=== PATIENT | female | born 1990 ===

== ENCOUNTER 2020-03-19 22:05 | Inpatient (IN) | payer BC ==
[~2020-03-19] VITALS: Wt 67.7 kg
--- NOTE | 2020-03-19 21:50 | NUR ---
Ambulatory to unit for labor assessment, accompanied by spouse. Pt reports "my water broke @ 8:20". Oriented to room, monitor, plan of care.
[2020-03-19 22:05] VITALS: BP 123/79; PULSE 84
[2020-03-19] MEDS ORDERED: PRENATAL TABLET PO (22:27)
[2020-03-19 22:30] VITALS: BP 117/71; PULSE 85
[2020-03-19 23:00] VITALS: BP 119/76; BP 120/68; PULSE 86; PULSE 96
[2020-03-19 23:30] VITALS: BP 109/70; PULSE 84
[2020-03-20] VITALS (39 sets, daily range): BP systolic 101–1238; BP diastolic 56–851; PULSE 78–137; TEMP 97.9–100.9
[2020-03-20 01:27] LABS: HEMATOCRIT 38.4 % (37.0-47.0); HEMOGLOBIN 12.2 g/dl (12.5-16.0); MEAN CELL VOLUME 77 fl (80.0-100.0); MEAN CORPUSCULAR HEMOGLOBIN 25 pg (27.0-31.0); MEAN CORPUSCULAR HGB CONC 32 g/dl (33.0-37.0); PLATELET COUNT 234 K/mm3 (130-400); RED BLOOD COUNT 4.97 M/mm3 (4.10-5.30); REDCELL DISTRIBUTION WIDTH-CV 15.1 % (11.5-14.5)
[2020-03-20 02:13] LABS: BAND 15 % (0-10); EOSINOPHIL 2 % (0-4); LYMPHOCYTE 15 % (20.0-51.0); NEUTROPHILS 56 % (42.0-75.2); PLATELET ESTIMATE NORMAL (NORMAL)
[2020-03-20 02:14] LABS: ANISOCYTOSIS 1+; HYPOCHROMIA 1+; MICROCYTOSIS 1+
--- NOTE | 2020-03-20 02:20 | NUR ---
Pt states "I don't think the pain medicine is working very good this time. I would like an epidural"
--- NOTE | 2020-03-20 03:00 | NUR ---
[facility] MAINTENANCE TECHNICIAN into room for epidural placement. PT to edge of bed.
--- NOTE | 2020-03-20 03:10 | NUR ---
pt sitting on edge of bed, EFM tracing maternal heart rate, nurse holds toco in place, EFM traces EFM.
--- NOTE | 2020-03-20 06:30 | NUR ---
Report from Akira Nagy RN, care of patient assumed at this time. Patient sleeping, at bedside and call light in reach.
--- NOTE | 2020-03-20 07:00 | NUR ---
SVE 10/+2. Patient does not feel pressure at this time. notified, see physician notification. Patient updated on plan of care and encouraged to notify RN with increased pain or pressure. Call light in reach.
--- NOTE | 2020-03-20 07:35 | NUR ---
Causey catheter removed prior to pushing. Pericare given. Patient comfortable with epidural. 0345- Patient begins pushing with contractions with RN at bedside. Physician in transit to hospital soon.
--- NOTE | 2020-03-20 08:18 | NUR ---
Patient pushing in LL position. 0820- at bedside to assess pushing efforts. Patient continues to push with contractions.
--- NOTE | 2020-03-20 08:45 | NUR ---
Dr. Garcia at bedside to assess pushing.
--- NOTE | 2020-03-20 08:45 | NUR ---
0845- called for bedside for impending delivery. Patient continues pushing with contractions. Nursery RN to bedside. 0914- of viable female infant attended by . to mother's abdomen, care of infant to Michel Killian RN. Apgars 8/9. Delayed cord clamping per patient request. 0918- Spont. delivery of placenta. Pitocin bolus infusing at 333 ml/hr/protocol. Second degree and periclitoral laceration repaired by Dr. Garcia. Patient tolerates well. Fundal massage by RN, firm and at umbilicus. Vaginal bleeding WNL at this time. Pericare given and ice pack applied. Patient updated on plan of care and safety reviewed.
[2020-03-20] MEDS ORDERED: MOTRIN 800800 MG/TAB PO (21:42)
[2020-03-21 00:15] VITALS: BP 114/61; PULSE 95; TEMP 98.3
[2020-03-21 05:00] VITALS: BP 98/49; PULSE 78; TEMP 98
[2020-03-21 06:34] LABS: MEAN CELL VOLUME 79 fl (80.0-100.0); MEAN CORPUSCULAR HGB CONC 31 g/dl (33.0-37.0); PLATELET COUNT 160 K/mm3 (130-400); RED BLOOD COUNT 3.77 M/mm3 (4.10-5.30)
[2020-03-21 06:52] LABS: HEMATOCRIT 29.8 % (37.0-47.0); MEAN CORPUSCULAR HEMOGLOBIN 25 pg (27.0-31.0)
[2020-03-21 06:55] LABS: HEMOGLOBIN 9.3 g/dl (12.5-16.0)
[2020-03-21 08:53] VITALS: BP 100/58; PULSE 76; TEMP 98.1
[2020-03-21] MEDS ORDERED: FERRO-TIME325 MG PO (09:24)
== END 2020-03-21 14:41 | disposition home or self-care (01) | DRG 768 ==
LOC: LDRO 22:05 → LDR 22:35 → OB 03-20 11:45
PROVIDERS: Obstetrics & Gynecology; ADMIT Obstetrics & Gynecology
PROC: 10E0XZZ Delivery of Products of Conception, External Approach (ICD-10-PCS; principal; 2020-03-19)
PROC: 0UQJXZZ Repair Clitoris, External Approach (ICD-10-PCS; 2020-03-19)
PROC: 0KQM0ZZ Repair Perineum Muscle, Open Approach (ICD-10-PCS; 2020-03-19)
DX: O48.0 Post-term pregnancy (principal); Z37.0 Single live birth; O86.4 Pyrexia of unknown origin following delivery; O90.81 Anemia of the puerperium; D64.9 Anemia, unspecified; O70.1 Second degree perineal laceration during delivery; O71.89 Other specified obstetric trauma; Z3A.40 40 weeks gestation of pregnancy
CPT/HCPCS: J0290; J0595; J1580; J2590; J7050; J7120

== ENCOUNTER → 2020-03-24 | Outpatient (CLI) | payer BC ==
[~2020-03-24] MED LIST: FERRO-TIME325 MG PO; MOTRIN 800800 MG/TAB PO; PRENATAL TABLET PO
--- NOTE | 2020-03-24 14:59 | NUR ---
Pt, Allyssa pineda, presents for outpatient consult with four day old baby girl Jackie Macdonald, and her spouse Tyler Macdonald, for a evaluation r/t sore nipples. Jackie was born on [birth year] by and weighed 6#14.1oz. She was seen yesterday by Dr. Shaw and weighed 6#6oz. Pt reported sore nipples to the point of crying and was referred for consult. This LC spoke to pt by telephone yesterday and gave her instructions to help manage engorgement and latching until this appointment. Today Jackie weighs 6#7.7oz (2940 gms). Pt reports the telephone information has been helpful and baby latched on well a couple times in the noc. Jackie has been supplemented a few times because of the nipple pain, receiving two 30-45ml bottles of EBM last noc. Jackie has qs voids and stools. At this feeding pt is advised on breast support and position that can allow her to compress the areola into Jackie's mouth deeper with latch and how to help the jaw stay open wider. Pt reports not painful. No wounds noted before or after feeding. Jackie nurses bilaterally, taking 1.8oz (53 gms) and 0.7oz (18 gms) for a total gain of 2.5oz (70 gms). She is content after burping. Pt has several questions about in general and reviews hand position a few times prior to departure. POC: Continue ad navneet, pump prior to latching if breasts are too firm for latching. Pt may continue to elect an evening or noc feeding where her provides a bottle of milk while she gets more rest. F/U: As needed with this LC and with Dr. Shaw for Jackie's one month appt. Questions invited and answered.
== END ==
LOC: LAC 13:16
DX: Z39.1 Encounter for care and examination of lactating mother (principal); Z71.89 Other specified counseling